=== PATIENT | female | born 1985 | race Two or more races ===

== ENCOUNTER 2019-01-10 22:18 | Emergency (ER) | payer BC ==
[~2019-01-10] VITALS: Ht 167.6 cm; Wt 129.4 kg
[~2019-01-10 22:18] MED LIST: HYDR1TAB PO
[2019-01-10] MEDS ORDERED: ketorolac trometh. 30mg/ml inj. IV ONE (23:10)
[2019-01-10] MEDS ORDERED: normal saline 1000ml 1,000 ML IV ONE (23:10)
[2019-01-11 00:21] LABS: CLARITY,URINE CLEAR (Clear); COLOR,URINE YELLOW (Yellow); GLUCOSE, URINE NEGATIVE (Neg); KETONES,URINE NEGATIVE (Neg); LEUKOCYTE ESTERASE ,URINE TRACE (Neg); NITRITES, URINE NEGATIVE (Neg); OCCULT BLOOD,URINE LARGE (Neg); PH,URINE 5.5 (4.8-8.0); PROTEIN,URINE NEGATIVE (Neg); UROBILINOGEN,URINE 0.2 E.U/dL (0.2-1.0)
[2019-01-11 00:23] LABS: UA COLLECTION TYPE CLN CATCH MIDSTREAM
[2019-01-11 00:27] LABS: BACTERIA,URINE 1+ /HPF (Neg); RBC,URINE 20-50 /HPF (0-2); SQUAMOUS EPITHELIAL CELL,UR MANY /LPF (FEW)
[2019-01-11] MEDS ORDERED: morphine 4 MG/ML inj SYRINge IV ONE ×2 (00:40→03:35)
[2019-01-11] MEDS ORDERED: ondansetron/PF 4mg/2ml inj IV ONE (00:40)
[2019-01-11] MEDS ORDERED: HYDR-3965 PO ×2 (01:04→03:35)
[2019-01-11] MEDS ORDERED: CEPH-572 PO (01:04)
[2019-01-11] MEDS ORDERED: IBUP-1985 PO (01:07)
[2019-01-11] MEDS ORDERED: normal saline 1000ml 1,000 ML IV ONE (01:10)
[2019-01-11] MEDS ORDERED: furosemide 10 MG/1 ML 10ml inj IV ONE (01:10)
[2019-01-11 01:14] LABS: URINE HCG NEGATIVE (NEG)
--- NOTE | 2019-01-11 01:32 | NUR ---
pt went to [place] and has returned
[2019-01-11 02:44] LABS: CLARITY,URINE CLEAR (Clear); COLOR,URINE YELLOW (Yellow); GLUCOSE, URINE NEGATIVE (Neg); KETONES,URINE NEGATIVE (Neg); LEUKOCYTE ESTERASE ,URINE NEGATIVE (Neg); NITRITES, URINE NEGATIVE (Neg); OCCULT BLOOD,URINE MODERATE (Neg); PROTEIN,URINE NEGATIVE (Neg); UA COLLECTION TYPE STRAIGHT CATH; UROBILINOGEN,URINE 0.2 E.U/dL (0.2-1.0)
[2019-01-11 02:46] LABS: BACTERIA,URINE FEW /HPF (Neg); MUCUS STRANDS FEW /LPF (Neg); SQUAMOUS EPITHELIAL CELL,UR FEW /LPF (FEW); WBC,URINE 0-4 /HPF (0-4)
[2019-01-11 03:13] LABS: BASOPHILS # (AUTO) 0.1 X10'3 (0-0.2); BASOPHILS % (AUTO) 0.4 % (0-1); EOSINOPHILS % (AUTO) 0.1 % (0-6); HEMATOCRIT 36.3 % (35.0-45.0); HEMOGLOBIN 12.1 g/dl (12.0-16.0); LYMPHOCYTES # (AUTO) 2.1 X10'3 (1.1-4.8); MEAN CORPUSCULAR HEMOGLOBIN 27.7 PG (27.0-31.0); MEAN CORPUSCULAR HGB CONC 33.3 g/dL (33.0-36.5); MEAN CORPUSCULAR VOLUME 83.1 FL (78-98); MEAN PLATELET VOLUME 8.9 FL (7.4-10.4); MONOCYTES # (AUTO) 0.8 X10'3 (0-0.9); MONOCYTES % (AUTO) 5.7 % (2-12); NEUTROPHILS # (AUTO) 10.9 X10'3 (1.8-7.7); NEUTROPHILS % (AUTO) 78.8 % (42-75); PLATELET COUNT 296 X10'3 (140-440); RED BLOOD COUNT 4.36 X10'6 (4.20-5.60); RED CELL DISTRIBUTION WIDTH 14.2 % (11.5-14.5); WHITE BLOOD COUNT 13.8 X10'3 (4.5-11.0)
[2019-01-11 03:21] LABS: ALANINE AMINOTRANSFERASE 43 U/L (12-78); ALBUMIN 3.5 G/DL (3.4-5.0); ALKALINE PHOSPHATASE 44 IU/L (46-116); ANION GAP 11 (8-16); ASPARTATE AMINO TRANSFERASE 22 U/L (10-37); BILIRUBIN,TOTAL 0.3 MG/DL (0.1-1.0); BLOOD UREA NITROGEN 18 MG/DL (7-18); BUN/CREATININE RATIO 15.1 (6.6-38.0); CHLORIDE 106 MMOL/L (99-107); CREATININE 1.19 MG/DL (0.40-0.90); GLUCOSE 115 MG/DL (70-104); POTASSIUM 4.3 MMOL/L (3.5-5.1); SODIUM 140 MMOL/L (135-145); TOTAL CARBON DIOXIDE 23.1 MMOL/L (24-32); TOTAL PROTEIN 6.9 G/DL (6.4-8.2); eGFR 53 ML/MIN
[2019-01-11] MEDS ORDERED: ONDA8TAB6 PO (03:35)
[2019-01-11 03:59] VITALS: BP 148/89
== END 2019-01-11 04:01 | disposition home or self-care (01) ==
LOC: ER 22:19
DX: N13.2 Hydronephrosis with renal and ureteral calculous obstruction (principal); Z88.5 Allergy status to narcotic agent; Z79.899 Other long term (current) drug therapy
CPT/HCPCS: 36415; 74176; 80053; 81001; 81025; 85025; 96374; 96375; 96376; 99284; J1885; J2270; J2405; J7030